=== PATIENT | female | born 1965 | race Caucasian/White ===

== ENCOUNTER 2020-10-24 09:16 | Emergency (ER) | payer MEDICAID ==
[~2020-10-24] VITALS: Ht 167.6 cm; Wt 61.0 kg
[2020-10-24] MEDS ORDERED: SODIUM CHLORIDE FLUSH 10ML SYR IVF ONE (10:00)
[2020-10-24] MEDS ORDERED: SODIUM CHLORIDE 0.9% 1,000ML IVBOLUS ONE (10:00)
--- NOTE | 2020-10-24 10:00 | NUR ---
PT PRESENTS TO ED WITH C/O LOSS OF APPETITE X10 DAYS AND SYNCOPAL EVENT THIS MORNING. DENIES TRAUMA OR N/V. PT A&O, RESPS EVEN AND UNLABORED, VSS, NADN. JENNIFER MURRELL AT BEDSIDE FOR EVAL
[2020-10-24] MEDS ORDERED: PLEASE ENTER ALLERGIES MC SCH (10:30)
[2020-10-24 10:36] LABS: ALBUMIN 3.8 g/dL (3.4-5.0); ANION GAP 4 mmol/L (5-15); CALCIUM 9.6 mg/dL (8.5-10.1); CHLORIDE 106 mmol/L (98-107)
[2020-10-24 10:37] LABS: MICROSCOPIC INDICATED
--- NOTE | 2020-10-24 10:44 | NUR ---
PT A&O, RESPS EVEN AND UNLABORED, VSS, NADN. PT AMBULATORY TO BATHROOM WITH STEADY GAIT. NO COMPLAINTS AT THIS TIME. AWAITING LAB AND DISPO
[2020-10-24 10:47] LABS: ALANINE AMINOTRANSFERASE 21 U/L (12-78); ALKALINE PHOSPHATASE 189 U/L (45-117); BILIRUBIN,TOTAL 0.7 mg/dL (0.2-1.0); CREATININE 0.72 mg/dL (0.55-1.02); TOTAL PROTEIN 8.8 g/dL (6.4-8.2)
[2020-10-24 11:04] VITALS: BP 120/64
[2020-10-24 11:09] LABS: FREE T4 (FREE THYROXINE) 1.72 ng/dL (0.76-1.46)
[2020-10-24 11:19] LABS: BASOPHILS % (AUTO) 1 % (0-1); EOSINOPHILS % (AUTO) 1 % (1-7); LYMPHOCYTES % (AUTO) 30 % (22-44); MEAN CORPUSCULAR HEMOGLOBIN 29.3 pg (27.0-34.8); MEAN CORPUSCULAR HGB CONC 32.5 g/dL (32.4-35.8); MEAN PLATELET VOLUME 10.4 fL (7.4-10.4); MONOCYTES % (AUTO) 12 % (2-9); NEUTROPHILS % (AUTO) 56 % (42-75); PLATELET COUNT 68 x10^3/uL (130-400); RED BLOOD COUNT 4.43 x10^6/uL (3.82-5.3); RED CELL DISTRIBUTION WIDTH 15.4 % (9.6-15.2)
[2020-10-24 11:37] LABS: MD SCAN
--- NOTE | 2020-10-24 12:00 | NUR ---
JENNIFER MURRELL AT BEDSIDE TO DISCUSS POC
--- NOTE | 2020-10-24 12:19 | NUR ---
PT EDUCATED ON DISCHARGE INSTRUCTIONS, VERBALIZED UNDERSTANDING. A&O, RESPS EVEN AND UNLABORED, NADN. AMBULATORY TO DISCHARGE WITH STEADY GAIT.
== END 2020-10-24 12:24 | disposition home or self-care (01) ==
LOC: ED 09:58
DX: N39.0 Urinary tract infection, site not specified (principal); R42 Dizziness and giddiness; R55 Syncope and collapse; R94.31 Abnormal electrocardiogram [ECG] [EKG]; Z87.891 Personal history of nicotine dependence
CPT/HCPCS: 36415; 80053; 81001; 82140; 83735; 84439; 84443; 84481; 85025; 87077; 87086; 93005; 96360; 99284; J7030; 87186